=== PATIENT | female | born 1950 | race Caucasian/White ===

== ENCOUNTER 2024-04-10 21:57 | Emergency (ER) | payer MEDICARE ==
[~2024-04-10] VITALS: Ht 154.9 cm; Wt 61.4 kg
[2024-04-10] MEDS ORDERED: FEBU40TA4 PO (23:23)
[2024-04-10] MEDS ORDERED: AMLO1TAB25 PO (23:23)
[2024-04-10] MEDS: ONDANSETRON 4MG 2ML VIAL IV ONE (23:49)
[2024-04-10] MEDS: NS (Normal Saline) 0.9% 1,000 ML IV ONE (23:49)
[2024-04-10] MEDS: ACETAMINOPHEN *IV* 1,000 MG in IV 1 EA IV ONE (23:50)
[2024-04-10 23:52] LABS: BASO % 0.2 % (0.0-1.0); HEMATOCRIT 46.4 % (36.0-47.0); HEMOGLOBIN 14.9 g/dl (12.0-15.5); LYMPH # 0.7 10^3/uL (1.5-5.0); LYMPH % 6.8 % (24.0-44.0); MEAN CORPUSCULAR HEMOGLOBIN 27.1 pg (27.0-33.0); MEAN CORPUSCULAR HGB CONC 32.1 g/dl (32.0-36.5); MEAN CORPUSCULAR VOLUME 84.4 fl (80.0-96.0); MONO # 0.5 10^3/uL (0.0-0.8); MONO % 4.8 % (2.0-8.0); NEUTROPHILS # 8.8 10^3/uL (1.5-8.5); PLATELET COUNT, AUTOMATED 255 10^3/uL (150-450)
[2024-04-11 00:17] LABS: ALBUMIN 3.7 G/DL (3.2-5.2); BILIRUBIN,DIRECT 0.1 MG/DL (<0.4); BILIRUBIN,TOTAL 0.3 MG/DL (0.3-1.2); CREATININE FOR GFR 1.89 MG/DL (0.55-1.30); GLOMERULAR FILTRATION RATE 27.9 (>39); POTASSIUM SERUM 4.4 MMOL/L (3.5-5.1)
[2024-04-11] MEDS ORDERED: ONDA-282 PO (02:43)
[2024-04-11] MEDS ORDERED: LOMO2.5T PO (02:43)
[2024-04-11] MEDS: LOMOTIL 2.5MG/0.025MG TABLET PO ONE (03:04)
[2024-04-11 03:08] VITALS: BP 141/87; O2SAT 95
[2024-04-11 03:42] VITALS: TEMP 99.2
[2024-04-12] MEDS ORDERED: CARV3.12 PO (13:45)
[2024-04-12] MEDS ORDERED: DULO1CAP4 PO (13:45)
[2024-04-12] MEDS ORDERED: VALS40TA9 PO (13:45)
[2024-04-12] MEDS ORDERED: CLON0.12 PO (13:45)
[2024-04-12] MEDS ORDERED: ZOLP5TAB PO (13:45)
[2024-04-12] MEDS ORDERED: LAMO100T80 PO (13:45)
[2024-04-12] MEDS ORDERED: DULO60CA35 PO (19:10)
[2024-04-12] MEDS ORDERED: LAMO200T3 PO (19:10)
[2024-04-12] MEDS ORDERED: PROA1AER2 INH (19:12)
[2024-04-12] MEDS ORDERED: ARIP1TAB6 PO (19:12)
[2024-04-12] MEDS ORDERED: VALS1TAB68 PO (19:19)
== END 2024-04-11 03:44 | disposition home or self-care (01) ==
LOC: M ED 21:57
DX: A08.11 Acute gastroenteropathy due to Norwalk agent (principal); I12.9 Hypertensive chronic kidney disease with stage 1 through stage 4 chronic kidney disease, or unspecified chronic kidney disease; M10.9 Gout, unspecified; Z79.899 Other long term (current) drug therapy

== ENCOUNTER 2024-04-12 13:31 | Inpatient (IN) | payer MEDICARE ==
[~2024-04-12] VITALS: Ht 149.9 cm; Wt 107.5 kg
[~2024-04-12 13:31] MED LIST: AMLO1TAB25 PO; FEBU40TA4 PO; LOMO2.5T PO; ONDA-282 PO
[2024-04-12] MEDS ORDERED: ZOLP5TAB PO (13:45)
[2024-04-12] MEDS ORDERED: CARV3.12 PO (13:45)
[2024-04-12] MEDS ORDERED: CLON0.12 PO (13:45)
[2024-04-12] MEDS ORDERED: LAMO100T80 PO (13:45)
[2024-04-12] MEDS ORDERED: DULO1CAP4 PO (13:45)
[2024-04-12] MEDS ORDERED: VALS40TA9 PO (13:45)
[2024-04-12] MEDS: NS (Normal Saline) 0.9% 1,000 ML IV ONE (14:34)
[2024-04-12 14:42] LABS: VENOUS BASE EXCESS -23.7 (-2.0-2.0); VENOUS HCO3 8.7 MMOL/L (23.0-27.0); VENOUS O2 SATURATION 77.2 % (60.0-80.0); VENOUS PARTIAL PRESSURE CO2 42.3 mmHg (38.0-50.0); VENOUS PARTIAL PRESSURE O2 49.3 mmHg (30.0-50.0); VENOUS PH 6.931 UNITS (7.330-7.430); VENOUS STANDARD HCO3 8.5 MMOL/L
[2024-04-12 14:44] LABS: BASO % 0.3 % (0.0-1.0); HEMATOCRIT 53.8 % (36.0-47.0); HEMOGLOBIN 16.4 g/dl (12.0-15.5); LYMPH # 1.1 10^3/uL (1.5-5.0); LYMPH % 11.1 % (24.0-44.0); MEAN CORPUSCULAR HEMOGLOBIN 27.4 pg (27.0-33.0); MEAN CORPUSCULAR HGB CONC 30.5 g/dl (32.0-36.5); MEAN CORPUSCULAR VOLUME 89.8 fl (80.0-96.0); MONO # 0.8 10^3/uL (0.0-0.8); MONO % 7.6 % (2.0-8.0); NEUTROPHILS # 7.9 10^3/uL (1.5-8.5); NEUTROPHILS % 79.4 % (36.0-66.0); PLATELET COUNT, AUTOMATED 349 10^3/uL (150-450); RED BLOOD COUNT 5.99 10^6/uL (4.00-5.40)
[2024-04-12 15:15] LABS: C REACTIVE PROTEIN QUANTITATIV 5.88 MG/DL (<1.0)
[2024-04-12 15:26] LABS: PROCALCITONIN 1.35 ng/ml
[2024-04-12 15:32] LABS: BLOOD UREA NITROGEN 44 MG/DL (9-23); CARBON DIOXIDE LEVEL < 10.0 MMOL/L (20-31); CHLORIDE LEVEL 119 MMOL/L (98-107); CREATININE FOR GFR 6.25 MG/DL (0.55-1.30); GLUCOSE, FASTING 177 MG/DL (74-106); POTASSIUM SERUM 4.3 MMOL/L (3.5-5.1); SODIUM LEVEL 149 MMOL/L (136-145)
[2024-04-12 16:15] LABS: ABG BASE EXCESS -21.6 (-2.0-2.0); ABG HCO3 7.1 MMOL/L (22.0-26.0); ABG O2 SATURATION 96.7 % (95.0-99.0); ABG PARTIAL PRESSURE CO2 25.4 mmHg (35.0-45.0); ABG PARTIAL PRESSURE O2 103.1 mmHg (75.0-100.0); ABG STANDARD HCO3 9.5 MMOL/L. (22.0-26.0); ABG TOTAL CO2 7.9 MMOL/L (23.0-31.0)
[2024-04-12 16:18] LABS: ABG pH (ARTERIAL) 7.067 UNITS (7.350-7.450)
[2024-04-12] MEDS: NS (Normal Saline) 0.9% 2,140 ML in IV 1 EA IV ONE (17:04)
[2024-04-12] MEDS: PIPERACILLIN/TAZOBACTAM SOD 4.5 GM in DEXTROSE 5% (D5W) ADV/MINI-BAG 50 ML IV ONE (17:04)
[2024-04-12 17:19] LABS: ALBUMIN 4.3 G/DL (3.2-5.2); ALKALINE PHOSPHATASE 148 U/L (35-104); ALT/SGPT 33 U/L (7.0-40); AST/SGOT 26 U/L (<34); BILIRUBIN,DIRECT < 0.1 MG/DL (<0.4); BILIRUBIN,TOTAL < 0.2 MG/DL (0.3-1.2)
[2024-04-12] MEDS ORDERED: LAMO200T3 PO (19:10)
[2024-04-12] MEDS ORDERED: DULO60CA35 PO (19:10)
[2024-04-12] MEDS ORDERED: PROA1AER2 INH (19:12)
[2024-04-12] MEDS ORDERED: ARIP1TAB6 PO (19:12)
[2024-04-12] MEDS ORDERED: VALS1TAB68 PO (19:19)
[2024-04-12] MEDS ORDERED: HOME MED LIST COMPLETE! XX SCH (19:20)
[2024-04-12 20:10] VITALS: BP 139/69; TEMP 97.2; O2SAT 97
[2024-04-12] MEDS: SODIUM BICARBONATE 100 MEQ in D5W 1,000 ML IV SCH (20:11)
[2024-04-12 22:10] VITALS: BP 139/69; TEMP 97.2; O2SAT 97
[2024-04-12] MEDS: ONDANSETRON 4MG 2ML VIAL IV PRN (22:32)
[2024-04-12 23:20] LABS: BLOOD UREA NITROGEN 45 MG/DL (9-23); CALCIUM LEVEL 8.8 MG/DL (8.3-10.6); CARBON DIOXIDE LEVEL < 10.0 MMOL/L (20-31); CHLORIDE LEVEL 118 MMOL/L (98-107); CREATININE FOR GFR 6.04 MG/DL (0.55-1.30); GLOMERULAR FILTRATION RATE 7.3 (>39); GLUCOSE, FASTING 133 MG/DL (74-106); POTASSIUM SERUM 3.9 MMOL/L (3.5-5.1); SODIUM LEVEL 144 MMOL/L (136-145)
[2024-04-13] MEDS: diphenhydrAMINE 50MG CAP PO ONE (00:29)
[2024-04-13 03:34] VITALS: BP 168/67; TEMP 97.8; O2SAT 95
[2024-04-13] MEDS: HEPARIN SOD (PORCINE) 5000UNITS/ML 1ML VIAL/SYRINGE SC SCH (05:17)
[2024-04-13 06:47] LABS: BILIRUBIN,TOTAL 0.2 MG/DL (0.3-1.2); CALCIUM LEVEL 8.5 MG/DL (8.3-10.6); CREATININE FOR GFR 5.82 MG/DL (0.55-1.30); GLOMERULAR FILTRATION RATE 7.6 (>39); POTASSIUM SERUM 3.2 MMOL/L (3.5-5.1); TOTAL PROTEIN 6.7 G/DL (5.7-8.2)
[2024-04-13 07:06] LABS: HEMATOCRIT 40.8 % (36.0-47.0); MEAN CORPUSCULAR HEMOGLOBIN 27.3 pg (27.0-33.0); MEAN CORPUSCULAR HGB CONC 32.4 g/dl (32.0-36.5); MEAN CORPUSCULAR VOLUME 84.3 fl (80.0-96.0); RED BLOOD COUNT 4.84 10^6/uL (4.00-5.40); WHITE BLOOD COUNT 12.8 10^3/uL (4.0-10.0)
[2024-04-13] MEDS: POTASSIUM CHLORIDE 10MEQ SR TABLET PO ONE (07:14)
[2024-04-13 07:35] LABS: HEMOGLOBIN 13.2 g/dl (12.0-15.5); PLATELET COUNT, AUTOMATED 223 10^3/uL (150-450)
[2024-04-13 08:05] VITALS: BP 136/60; TEMP 98.4; O2SAT 100
[2024-04-13] MEDS ORDERED: TROS20TA3 PO (10:43)
[2024-04-13 11:23] LABS: KETONE, URINE AUTO RFX NEGATIVE (NEGATIVE); MUCUS, URINE RFX SMALL (NEGATIVE); NITRITE, URINE AUTO RFX NEGATIVE (NEGATIVE)
[2024-04-13 11:28] LABS: LEUKOCYTE ESTERASE UR AUTO RFX TRACE (NEGATIVE)
[2024-04-13] MEDS ORDERED: PILL CUTTER 1 EACH XX PRN (11:40)
[2024-04-13 11:45] LABS: ALBUMIN 2.8 G/DL (3.2-5.2); CALCIUM LEVEL 8.1 MG/DL (8.3-10.6); CREATININE FOR GFR 5.24 MG/DL (0.55-1.30); GLOMERULAR FILTRATION RATE 8.6 (>39); PHOSPHORUS LEVEL 4.2 MG/DL (2.4-5.1); POTASSIUM SERUM 3.5 MMOL/L (3.5-5.1)
[2024-04-13 12:28] VITALS: BP 143/67; TEMP 96.8; O2SAT 97
[2024-04-13] MEDS: metroNIDAZOLE 500 MG in IV 1 EA IV SCH (13:20)
[2024-04-13] MEDS: DULoxetine 30MG CAPSULE (CYMBALTA) PO SCH (13:22)
[2024-04-13] MEDS: amLODIPine 5 MG TAB PO SCH (13:24)
[2024-04-13] MEDS: cefTRIAXone SOD 2 GM in DEXTROSE 5% (D5W) ADV/MINI-BAG 50 ML IV SCH (14:47)
[2024-04-13 16:37] VITALS: BP 145/84; O2SAT 97
[2024-04-13] MEDS: POTASSIUM CHLORIDE 10MEQ SR TABLET PO SCH (17:20)
[2024-04-13 19:49] VITALS: BP 117/57; TEMP 97.2; O2SAT 97
[2024-04-13] MEDS: lamoTRIgine 100MG TAB PO SCH (21:34)
[2024-04-13 23:32] VITALS: BP 114/54; TEMP 97; O2SAT 95
[2024-04-13] MEDS: zolPIDEM TARTRATE 5 MG TAB PO PRN (23:39)
[2024-04-14 03:47] VITALS: BP 114/56; TEMP 97.5; O2SAT 94
[2024-04-14 07:30] VITALS: BP 110/53; TEMP 97.7; O2SAT 96
[2024-04-14 07:52] LABS: HEMATOCRIT 35.4 % (36.0-47.0); HEMOGLOBIN 12.1 g/dl (12.0-15.5); MEAN CORPUSCULAR HEMOGLOBIN 27.6 pg (27.0-33.0); MEAN CORPUSCULAR HGB CONC 34.2 g/dl (32.0-36.5); MEAN CORPUSCULAR VOLUME 80.8 fl (80.0-96.0); PLATELET COUNT, AUTOMATED 210 10^3/uL (150-450); RED BLOOD COUNT 4.38 10^6/uL (4.00-5.40); WHITE BLOOD COUNT 7.4 10^3/uL (4.0-10.0)
[2024-04-14 08:18] LABS: ALBUMIN 2.6 G/DL (3.2-5.2); CREATININE FOR GFR 3.41 MG/DL (0.55-1.30); GLOMERULAR FILTRATION RATE 14.1 (>39); PHOSPHORUS LEVEL 3.7 MG/DL (2.4-5.1); POTASSIUM SERUM 3.4 MMOL/L (3.5-5.1)
[2024-04-14] MEDS: NYSTATIN 100,000 UNITS/GM TOPICAL PWD 15GM TOP SCH (08:34)
[2024-04-14 10:44] LABS: MAGNESIUM LEVEL 1.7 MG/DL (1.8-2.4)
[2024-04-14] MEDS: LR 1,000 ML IV SCH (11:15)
[2024-04-14] MEDS: POTASSIUM CHLORIDE 10MEQ SR TABLET PO SCH ×2 (11:42→15:20)
[2024-04-14] MEDS: MAG SULF 1GM/100ML (MAG RUN) 1 GM in IV 1 EA IV ONE (13:03)
[2024-04-14 16:00] VITALS: BP 112/62; TEMP 97.5; O2SAT 97
[2024-04-14 20:00] VITALS: BP 142/83; TEMP 97.5; O2SAT 95
[2024-04-15 00:33] VITALS: BP 144/73; TEMP 97.7; O2SAT 95
[2024-04-15 04:39] VITALS: BP 137/89; TEMP 97.9; O2SAT 95
[2024-04-15] MEDS: ALBUTEROL 90 MCG/ACT 8GM HFA INHALER INH PRN (06:06)
[2024-04-15] MEDS: LOPERAMIDE 2 MG CAPLET PO PRN (07:26)
[2024-04-15 08:00] VITALS: BP 136/69; TEMP 97.2; O2SAT 98
[2024-04-15 08:01] LABS: BASO % 0.6 % (0.0-1.0); EOS # 0.2 10^3/uL (0.0-0.5); EOS % 2.1 % (0.0-3.0); HEMATOCRIT 37.2 % (36.0-47.0); HEMOGLOBIN 12.5 g/dl (12.0-15.5); LYMPH # 2.2 10^3/uL (1.5-5.0); LYMPH % 30.7 % (24.0-44.0); MEAN CORPUSCULAR HEMOGLOBIN 27.9 pg (27.0-33.0); MEAN CORPUSCULAR HGB CONC 33.6 g/dl (32.0-36.5); MONO # 0.7 10^3/uL (0.0-0.8); MONO % 10.2 % (2.0-8.0); NEUTROPHILS % 56.1 % (36.0-66.0); PLATELET COUNT, AUTOMATED 215 10^3/uL (150-450); RED BLOOD COUNT 4.48 10^6/uL (4.00-5.40); WHITE BLOOD COUNT 7.2 10^3/uL (4.0-10.0)
[2024-04-15 08:33] LABS: CALCIUM LEVEL 8.7 MG/DL (8.3-10.6); CREATININE FOR GFR 1.74 MG/DL (0.55-1.30); GLOMERULAR FILTRATION RATE 30.7 (>39); MAGNESIUM LEVEL 1.8 MG/DL (1.8-2.4); POTASSIUM SERUM 3.6 MMOL/L (3.5-5.1)
[2024-04-15 08:43] VITALS: BP 153/88
[2024-04-15] MEDS ORDERED: AMLO10TA PO (09:36)
[2024-04-15] MEDS ORDERED: LOPE1CAP5 PO (09:37)
== END 2024-04-15 15:47 | disposition home or self-care (01) | DRG 683 ==
LOC: M ED 13:31 → EDBD 13:31 → M ED INP 16:41 → M PCU 22:22 → M MS5PR 04-14 15:40
PROVIDERS: ADMIT Internal Medicine; ATTEND Internal Medicine
DX: N17.9 Acute kidney failure, unspecified (principal); A08.11 Acute gastroenteropathy due to Norwalk agent; E87.4 Mixed disorder of acid-base balance; E87.0 Hyperosmolality and hypernatremia; I12.9 Hypertensive chronic kidney disease with stage 1 through stage 4 chronic kidney disease, or unspecified chronic kidney disease; N18.9 Chronic kidney disease, unspecified; M10.9 Gout, unspecified; E83.42 Hypomagnesemia; F39 Unspecified mood [affective] disorder; J45.909 Unspecified asthma, uncomplicated; E87.6 Hypokalemia; E83.52 Hypercalcemia; E86.0 Dehydration; R68.0 Hypothermia, not associated with low environmental temperature; D75.1 Secondary polycythemia; Z79.899 Other long term (current) drug therapy

== ENCOUNTER 2024-04-22 14:35 | Emergency (ER) | payer MEDICARE ==
[~2024-04-22] VITALS: Ht 149.9 cm; Wt 112.0 kg
[~2024-04-22 14:35] MED LIST changes: +AMLO10TA PO; +ARIP1TAB6 PO; +CARV3.12 PO; +CLON0.12 PO; +DULO1CAP4 PO; +DULO60CA35 PO; +LAMO100T80 PO; +LAMO200T3 PO; +LOPE1CAP5 PO; +PROA1AER2 INH; +TROS20TA3 PO; +VALS1TAB68 PO; +VALS40TA9 PO; +ZOLP5TAB PO
[2024-04-22 14:38] VITALS: BP 174/97; TEMP 99.6; O2SAT 96
[2024-04-22 16:18] LABS: BASO # 0.1 10^3/uL (0.0-0.2); BASO % 0.6 % (0.0-1.0); EOS # 0.1 10^3/uL (0.0-0.5); EOS % 0.7 % (0.0-3.0); HEMATOCRIT 35.3 % (36.0-47.0); HEMOGLOBIN 11.7 g/dl (12.0-15.5); LYMPH # 1.4 10^3/uL (1.5-5.0); LYMPH % 16.4 % (24.0-44.0); MEAN CORPUSCULAR HEMOGLOBIN 27.7 pg (27.0-33.0); MEAN CORPUSCULAR HGB CONC 33.1 g/dl (32.0-36.5); MEAN CORPUSCULAR VOLUME 83.6 fl (80.0-96.0); MONO # 0.8 10^3/uL (0.0-0.8); NEUTROPHILS # 5.9 10^3/uL (1.5-8.5); NEUTROPHILS % 71.9 % (36.0-66.0); PLATELET COUNT, AUTOMATED 259 10^3/uL (150-450); RED BLOOD COUNT 4.22 10^6/uL (4.00-5.40); WHITE BLOOD COUNT 8.2 10^3/uL (4.0-10.0)
[2024-04-22 16:46] LABS: BILIRUBIN,DIRECT 0.1 MG/DL (<0.4); BILIRUBIN,TOTAL 0.3 MG/DL (0.3-1.2); CALCIUM LEVEL 9.4 MG/DL (8.3-10.6); CREATININE FOR GFR 1.18 MG/DL (0.55-1.30); GLOMERULAR FILTRATION RATE 48.1 (>39); POTASSIUM SERUM 3.4 MMOL/L (3.5-5.1)
[2024-04-22] MEDS: ONDANSETRON 4MG ORAL DISINTEGRATING TAB PO ONE (19:40)
== END 2024-04-22 20:45 | disposition home or self-care (01) ==
LOC: M ED 14:35
DX: K52.9 Noninfective gastroenteritis and colitis, unspecified (principal); Z86.19 Personal history of other infectious and parasitic diseases; I10 Essential (primary) hypertension; F32.A Depression, unspecified; F51.01 Primary insomnia; Z90.49 Acquired absence of other specified parts of digestive tract; Z79.52 Long term (current) use of systemic steroids; Z79.83 Long term (current) use of bisphosphonates; Z79.899 Other long term (current) drug therapy